=== PATIENT | female | born 1970 | race Caucasian/White ===

== ENCOUNTER → 2016-05-30 | Outpatient (CLI) | payer OTHER | END | disposition home or self-care (01) | LOC: LABWHC1 17:15 | PROVIDERS: ATTEND Internal Medicine Endocrinology, Diabetes & Metabolism | DX: C73 Malignant neoplasm of thyroid gland (principal); E55.9 Vitamin D deficiency, unspecified; E89.0 Postprocedural hypothyroidism | CPT/HCPCS: 36415; 82306; 84432; 84439; 84443; 84481; 86800 ==

== ENCOUNTER → 2016-08-29 | Outpatient (CLI) | payer OTHER ==
[2016-08-29 17:48] LABS: Calcium 9.5 mg/dL (8.4-10.2)
== END | disposition home or self-care (01) ==
LOC: LABWHC1 17:05
PROVIDERS: ATTEND Internal Medicine Endocrinology, Diabetes & Metabolism
DX: C73 Malignant neoplasm of thyroid gland (principal); E55.9 Vitamin D deficiency, unspecified; E89.0 Postprocedural hypothyroidism
CPT/HCPCS: 36415; 82306; 82310; 84439; 84443; 84481

== ENCOUNTER → 2017-07-01 | Outpatient (CLI) | payer OTHER ==
[2017-07-01 15:18] VITALS: BP 104/76; PULSE 96; TEMP 97.9; BMI 27.9
--- NOTE | 2017-07-01 15:59 | P.HPOB ---
History of Present Illness H&P Date: 07/01/17 Chief Complaint: The patient is here for her routine gynecologic exam and mammogram. This is a 46-year-old G3 PIII with an LMP of 06/12/2017. The patient is status post tubal ligation. She states her menstrual periods seem to come slightly earlier each month. She has infrequently noticed a slight pain right when her menstrual flow starts. She has not noticed this recently. She is otherwise without gynecologic complaints. Review of Systems She has gained about 14 pounds over the last 2 years. She has been having a difficult time losing weight. She denies respiratory, cardiac, or G.I. problems. Past Medical History Past Medical History: Cancer (Thyroid cancer), Thyroid Disorder (History of thyroid cancer status post thyroidectomy. 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 She had 3 vaginal deliveries and did have a tubal ligation. History of Any Multi-Drug Resistant Organisms: None Reported Past Surgical History: Tubal Ligation Additional Past Surgical History / Comment(s): Right and Left foot -1987,2011. 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 - Past Family History Sister(s) Family Medical History: Thyroid Disorder Mother Family Medical History: Renal Disease Medications and Allergies Home Medications Medication Instructions Recorded Confirmed Type Ergocalciferol [Vitamin D2 1 tab PO WEEKLY 07/01/17 07/01/17 History (DRISDOL)] Levothyroxine Sodium [Synthroid] 12 mcg PO DAILY 07/01/17 07/01/17 History Liothyronine Sodium [Cytomel] 2 tab PO BID 07/01/17 07/01/17 History Allergies Allergy/AdvReac Type Severity Reaction Status Date / Time No Known Allergies Allergy Unverified 07/01/17 15:22 Exam - Vital Signs Vital signs: Vital Signs Temp Pulse BP 07/01/17 15:16 97.9 F 96 104/76 Intake and Output 07/01/17 07/01/17 07/01/17 06:59 14:59 22:59 Other: Weight 73.936 kg Height 5'4", BMI 28.0. This is a well-developed well-nourished white female who is alert and oriented times 3 in no acute distress. HEENT: Within normal limits. NECK: Supple without mass or thyromegaly. CHEST AND LUNGS: Clear to auscultation. HEART: Regular rate and rhythm. BREASTS: Are without mass or discharge. AXILLARY EXAM: Negative for adenopathy. BACK: Negative for CVA tenderness. ABDOMEN: Soft, nontender, without palpable masses. PELVIC EXAM: Normal external genitalia. Cervix and vagina appear normal. The cervix is multiparous. There is no unusual discharge. There is no evidence of prolapse. The uterus is retroverted, nongravid size and nontender. There are no palpable adnexal masses or tenderness. RECTAL EXAM: negative for mass or tenderness and is negative for occult blood. EXTREMITIES: Nontender. IMPRESSION: 1. 46-year-old female with normal gynecologic exam. Probable perimenopausal state. PLAN: 1. Pap smear was performed. 2. Self Breast examination was discussed. 3. Screening mammogram will be done today. 4. The patient will keep a menstrual calendar and will make an appointment if she is having greater menstrual irregularity. 5. Weight control was discussed. We have discussed the importance of good nutrition and regular exercise. 6. Osteoporosis prevention was discussed. 7. She will return in one year and PRN.
--- NOTE | 2017-07-03 08:26 | MM ---
Reason for exam: screening (asymptomatic). Last mammogram was performed 2 years and 5 months ago. History: Patient has history of other cancer at age 35. Physical Findings: A clinical breast exam by your physician is recommended on an annual basis and results should be correlated with mammographic findings. MG 3D Screening Mammo W/Cad Bilateral CC and MLO view(s) were taken. Prior study comparison: January 25, 2015, bilateral MG screening mammo w CAD. December 22, 2013, left breast MG diagnostic mammo LT w CAD. The breast tissue is heterogeneously dense. This may lower the sensitivity of mammography. There is chronic nodularity in the right breast. No significant changes when compared with prior studies. ASSESSMENT: Benign, BI-RAD 2 RECOMMENDATION: Routine screening mammogram of both breasts in 1 year.
== END | disposition home or self-care (01) ==
LOC: WWCWWP 14:40
PROVIDERS: ATTEND Obstetrics & Gynecology
DX: Z12.31 Encounter for screening mammogram for malignant neoplasm of breast (principal)
CPT/HCPCS: 77063; 77067

== ENCOUNTER → 2017-12-06 | Outpatient (CLI) | payer OTHER ==
[2017-12-06 12:51] LABS: T4, Free (Free Thyroxine) 0.99 ng/dL (0.78-2.19)
== END | disposition home or self-care (01) ==
LOC: LABWHC1 11:56
PROVIDERS: ATTEND Internal Medicine Endocrinology, Diabetes & Metabolism
DX: C73 Malignant neoplasm of thyroid gland (principal)
CPT/HCPCS: 36415; 84439; 84443; 84481

== ENCOUNTER → 2018-05-23 | Outpatient (CLI) | payer OTHER ==
[2018-05-23 16:33] LABS: Calcium 9.3 mg/dL (8.7-10.3)
[2018-05-23 16:47] LABS: T4, Free (Free Thyroxine) 1.2 ng/dL (0.80-1.80)
== END ==
LOC: LABWHC1 11:45
PROVIDERS: ATTEND Internal Medicine Endocrinology, Diabetes & Metabolism
DX: E55.9 Vitamin D deficiency, unspecified (principal); E89.0 Postprocedural hypothyroidism
CPT/HCPCS: 36415; 82306; 82310; 84439; 84443; 84481

== ENCOUNTER → 2018-10-20 | Outpatient (CLI) | payer OTHER | END | disposition home or self-care (01) | LOC: LABWHC1 11:47 | PROVIDERS: ATTEND Internal Medicine Endocrinology, Diabetes & Metabolism | DX: C73 Malignant neoplasm of thyroid gland (principal) | CPT/HCPCS: 36415; 84432; 84439; 84443; 86800 ==

== ENCOUNTER → 2018-10-20 | Outpatient (CLI) | payer OTHER ==
[2018-10-20 10:55] VITALS: BP 105/68; PULSE 74; RESP 16; TEMP 98.2; BMI 25.7
--- NOTE | 2018-10-20 11:40 | P.HPOB ---
History of Present Illness H&P Date: 10/20/18 Chief Complaint: The patient is here for her routine gynecologic exam and ma mmogram. This is a 48-year-old G3 PIII with an LMP of 09/30/2018. Patient states her menstrual periods have been monthly but can fluctuate by up to one week. She has also noticed the 1st one or 2 days can be heavier and crampy. She has to change your protection up to every 2 hours on the heavier days. She has had some improvement with the cramping with [id number] ibuprofen. She is status post tubal ligation. She is otherwise without gynecologic complaints. Review of Systems The patient has lost 13 pounds over the last year and this was after her thyroid medication was adjusted.. She denies respiratory, cardiac, or G.I. problems. Past Medical History Past Medical History: Cancer, Thyroid Disorder Additional Past Medical History / Comment(s): Thyroid cancer status post thyroidectomy. She has been hypothyroid since her thyroidectomy. 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 She had 3 vaginal deliveries and did have a tubal ligation. History of Any Multi-Drug Resistant Organisms: None Reported Past Surgical History: Tubal Ligation Additional Past Surgical History / Comment(s): Right and Left foot -1987,2011. 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 - Past Family History Sister(s) Family Medical History: Thyroid Disorder Mother Family Medical History: Renal Disease Medications and Allergies Home Medications Medication Instructions Recorded Confirmed Type Ergocalciferol [Vitamin D2 1 tab PO WEEKLY 07/01/17 10/20/18 History (DRISDOL)] Levothyroxine Sodium [Synthroid] 12 mcg PO DAILY 07/01/17 10/20/18 History Liothyronine Sodium [Cytomel] 2 tab PO BID 07/01/17 10/20/18 History Allergies Allergy/AdvReac Type Severity Reaction Status Date / Time codeine AdvReac Vomiting Unverified 10/20/18 10:55 Exam Vital Signs Temp Pulse Resp BP Pulse Ox 10/20/18 10:51 98.2 F 74 16 105/68 98 Intake and Output 10/19/18 10/20/18 10/20/18 22:59 06:59 14:59 Other: Weight 68.039 kg Height 5'4", weight 150 pounds, BMI 26. This is a well-developed well-nourished white female who is alert and oriented times 3 in no acute distress. HEENT: Within normal limits. NECK: Supple without mass or thyromegaly. CHEST AND LUNGS: Clear to auscultation. HEART: Regular rate and rhythm. BREASTS: Are without mass or discharge. AXILLARY EXAM: Negative for adenopathy. BACK: Negative for CVA tenderness. ABDOMEN: Soft, nontender, without palpable masses. PELVIC EXAM: Normal external genitalia. Cervix and vagina appear normal. There is no unusual discharge. There is no evidence of prolapse. The uterus is anteverted, nongravid size and nontender. There are no palpable adnexal masses or tenderness. RECTAL EXAM: rectovaginal exam is negative for mass or tenderness and is negative for occult blood. EXTREMITIES: Nontender. IMPRESSION: 1. 48-year-old premenopausal female with normal gynecologic exam. She is status post tubal ligation 2. Mild hypermenorrhea and dysmenorrhea. PLAN: 1. Pap smear was deferred since she had a normal one on 07/01/2017. 2. Self breast awareness was discussed with the patient. 3. Screening mammogram will be done today. 4. I have recommended screening colonoscopy based on her age. She will see Dr. Ring to see if it can be arranged through her office. 5. Trial of meclofenamate sodium 100 mg PO TID PRN for heavy menstrual flow up to 6 days per cycle. The electronic prescription will be sent to [facility] pharmacy. She will continue to keep a menstrual calendar. She will call if she is having greater menstrual problems. 6.Osteoporosis prevention was discussed. I have stressed the importance of adequate calcium, vitamin D and regular exercise. Recommended amounts of calcium and vitamin D were also discussed. 7. She was advised to return in one year for her annual well woman exam and PRN.
--- NOTE | 2018-10-22 11:35 | MM ---
Reason for exam: screening (asymptomatic). Last mammogram was performed 1 year and 4 months ago. History: Patient has history of other cancer at age 35. Physical Findings: A clinical breast exam by your physician is recommended on an annual basis and results should be correlated with mammographic findings. MG 3D Screening Mammo W/Cad Bilateral CC and MLO view(s) were taken. Prior study comparison: July 01, 2017, bilateral MG 3d screening mammo w/cad. January 25, 2015, bilateral MG screening mammo w CAD. The breast tissue is extremely dense which could obscure a lesion on mammography. There is chronic nodularity in the right breast. No significant changes when compared with prior studies. ASSESSMENT: Benign, BI-RAD 2 RECOMMENDATION: Routine screening mammogram of both breasts in 1 year.
== END ==
LOC: WWCWWP 10:14
PROVIDERS: ATTEND Obstetrics & Gynecology
DX: Z12.31 Encounter for screening mammogram for malignant neoplasm of breast (principal)
CPT/HCPCS: 77063; 77067

== ENCOUNTER → 2019-03-12 | Outpatient (CLI) | payer OTHER | END | disposition home or self-care (01) | LOC: LABWHC1 11:52 | PROVIDERS: ATTEND Internal Medicine | DX: E89.0 Postprocedural hypothyroidism (principal) | CPT/HCPCS: 36415; 84439; 84443 ==

== ENCOUNTER → 2020-02-14 | Outpatient (CLI) | payer OTHER ==
[2020-02-14 23:52] LABS: T4, Free (Free Thyroxine) 0.8 ng/dL (0.80-1.80)
== END | disposition home or self-care (01) ==
LOC: LABWHC1 13:26
PROVIDERS: ATTEND Internal Medicine
DX: E89.0 Postprocedural hypothyroidism (principal)
CPT/HCPCS: 36415; 84439; 84443

== ENCOUNTER → 2020-03-14 | Outpatient (CLI) | payer OTHER ==
[2020-03-14 12:52] VITALS: BP 113/74; PULSE 83; RESP 18; TEMP 97.6
--- NOTE | 2020-03-14 13:49 | P.HPOB ---
History of Present Illness H&P Date: 03/14/20 Chief Complaint: The patient is here for her routine gynecologic exam and ma mmogram. This is a 49-year-old with an LMP of December 2019. The patient states her periods have become less predictable. Her LMP in December was heavy, but she has not had periods since then. She has had a history of heavy menstrual periods and I had prescribed meclofenamate sodium, however her insurance did not cover it so she did not take it. She states she has rare hot flashes. She is otherwise without gynecologic complaints. Review of Systems The patient has gained 6 pounds over the last year. She denies respiratory, cardiac, or G.I. problems. Past Medical History Past Medical History: Cancer, Thyroid Disorder Additional Past Medical History / Comment(s): Thyroid cancer status post thyroidectomy. She has been hypothyroid since her thyroidectomy. 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 She had 3 vaginal deliveries and did have a tubal ligation. History of Any Multi-Drug Resistant Organisms: None Reported Past Surgical History: Tubal Ligation Additional Past Surgical History / Comment(s): Right and Left foot -1987,2011. 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 - Past Family History Sister(s) Family Medical History: Thyroid Disorder Mother Family Medical History: Renal Disease Medications and Allergies Home Medications Medication Instructions Recorded Confirmed Type Ergocalciferol [Vitamin D2 1 tab PO WEEKLY 07/01/17 03/14/20 History (DRISDOL)] Levothyroxine Sodium [Synthroid] 88 mcg PO DAILY 07/01/17 03/14/20 History Liothyronine Sodium [Cytomel] 2 tab PO BID 07/01/17 03/14/20 History Calcium Carbonate/Vitamin D3 1 each PO DAILY 03/14/20 03/14/20 History [Calcium 250-D Tablet] Allergies Allergy/AdvReac Type Severity Reaction Status Date / Time codeine AdvReac Vomiting Unverified 03/14/20 12:46 Exam Vital Signs Temp Pulse Resp BP Pulse Ox 12/29/20 12:48 97.6 F 83 18 113/74 97 Intake and Output 03/13/20 03/14/20 03/14/20 22:59 06:59 14:59 Other: Weight 70.76 kg Height 5 feet 5 inches, weight 156 pounds, BMI 26.0. This is a well-developed well-nourished white female who is alert and oriented times 3 in no acute distress. HEENT: Within normal limits. NECK: Supple without mass or thyromegaly. CHEST AND LUNGS: Clear to auscultation. HEART: Regular rate and rhythm. BREASTS: Are without mass or discharge. AXILLARY EXAM: Negative for adenopathy. BACK: Negative for CVA tenderness. ABDOMEN: Soft, nontender, without palpable masses. PELVIC EXAM: Normal external genitalia. Cervix and vagina appear normal. The cervix is anterior .There is no unusual discharge. There is no evidence of prolapse. The uterus is retroverted, nongravid size and nontender. There are no palpable adnexal masses or tenderness. RECTAL EXAM: Rectovaginal exam is negative for mass or tenderness and is negative for occult blood. EXTREMITIES: Nontender. IMPRESSION: 1. 49-year-old perimenopausal female with recent oligomenorrhea and minimal vasomotor symptoms with normal gynecologic exam. 2. History of mild hypermenorrhea and dysmenorrhea. PLAN: 1. Pap smear cotest was performed. 2. Self breast awareness was discussed with the patient. 3. Screening mammogram will be done today. 4. Osteoporosis prevention was discussed. I have stressed the importance of adequate calcium, vitamin D and regular exercise. Recommended amounts of calcium and vitamin D were also discussed. 5. She will keep a menstrual calendar and call if menstrual problems. 6. She was advised to return in one year for her annual well woman exam and as needed.
--- NOTE | 2020-03-20 10:45 | MM ---
Reason for exam: screening (asymptomatic). Last mammogram was performed 1 year and 5 months ago. History: Patient has history of other cancer at age 35. Took hormonal contraceptives for 10 years. Physical Findings: A clinical breast exam by your physician is recommended on an annual basis and results should be correlated with mammographic findings. MG 3D Screening Mammo W/Cad Bilateral CC and MLO view(s) were taken. Prior study comparison: October 20, 2018, bilateral MG 3d screening mammo w/cad. July 01, 2017, bilateral MG 3d screening mammo w/cad. The breast tissue is heterogeneously dense. This may lower the sensitivity of mammography. There is chronic nodularity in the right breast. No significant changes when compared with prior studies. ASSESSMENT: Negative, BI-RAD 1 RECOMMENDATION: Routine screening mammogram of both breasts in 1 year.
--- NOTE | 2020-03-22 12:57 | P.PN ---
Progress Note - Text Progress Note Date: 03/22/20 OUTPATIENT FOLLOW-UP NOTE TEST(S)/RESULTS: test results from 1229 include negative Pap smear and negative HRHPV test, and benign mammogram. METHOD OF NOTIFICATION: a message with these results was left on the patient's voice mail. PATIENT COMMENTS: DIAGNOSIS: negative Pap smear cotest and benign mammogram. DISCUSSION: PLAN: the patient is to return in one year for her annual well woman exam. pap smear cotest will be repeated in 4-5 years.
== END | disposition home or self-care (01) ==
LOC: WWCWWP 12:34
PROVIDERS: ATTEND Obstetrics & Gynecology
DX: Z12.31 Encounter for screening mammogram for malignant neoplasm of breast (principal)
CPT/HCPCS: 77063; 77067

== ENCOUNTER → 2021-03-14 | Outpatient (CLI) | payer OTHER ==
[2021-03-14 19:31] LABS: T4, Free (Free Thyroxine) 0.88 ng/dL (0.800-1.800)
== END | disposition home or self-care (01) ==
LOC: LABWHC1 14:23
PROVIDERS: ATTEND Internal Medicine
DX: C73 Malignant neoplasm of thyroid gland (principal); E89.0 Postprocedural hypothyroidism; E55.9 Vitamin D deficiency, unspecified
CPT/HCPCS: 36415; 82306; 84432; 84439; 84443; 86800

== ENCOUNTER 2021-12-31 07:24 | Day surgery (SDC) | payer OTHER ==
[2021-12-28 13:04] VITALS: BMI 25.7
--- NOTE | 2021-12-31 07:04 | P.GSHP ---
History of Present Illness H&P Date: 12/31/21 CHIEF COMPLAINT: Colon screen HISTORY OF PRESENT ILLNESS: The patient is a 51-year-old female who presents for colon screen. Lower endoscopy was offered for further evaluation and management. PAST MEDICAL HISTORY: Please see list. PAST SURGICAL HISTORY: Please see list. MEDICATIONS: Please see list. ALLERGIES: Please see list. SOCIAL HISTORY: No illicit drug use FAMILY HISTORY: No reports of Crohn disease or ulcerative colitis. REVIEW OF ORGAN SYSTEMS: CONSTITUTIONAL: No reports of fevers or chills. PHYSICAL EXAM: VITAL SIGNS: Stable GENERAL: Well-developed pleasant in no acute distress. HEENT: No scleral icterus. Extraocular movements grossly intact. Moist buccal mucosa. NECK: Supple without lymphadenopathy. CHEST: Unlabored respirations. Equal bilateral excursions. CARDIOVASCULAR: Regular rate and rhythm. Distal 2+ pulses. ABDOMEN: Soft, nontender, nondistended. MUSCULOSKELETAL: No clubbing, cyanosis, or edema. ASSESSMENT: 1. Colon screen. PLAN: 1. Recommend proceeding with a lower endoscopy Past Medical History Past Medical History: Cancer, Thyroid Disorder Additional Past Medical History / Comment(s): Thyroid cancer status post thyroidectomy. History of Any Multi-Drug Resistant Organisms: None Reported Past Surgical History: Tubal Ligation Additional Past Surgical History / Comment(s): Right and Left foot -1987,2011. thyroidectomy-2006 Past Anesthesia/Blood Transfusion Reactions: No Reported Reaction Past Psychological History: No Psychological Hx Reported Smoking Status: Current every day smoker Past Alcohol Use History: Occasional Past Drug Use History: None Reported - Past Family History Sister(s) Family Medical History: Thyroid Disorder Mother Family Medical History: Renal Disease Medications and Allergies Home Medications Medication Instructions Recorded Confirmed Type Levothyroxine Sodium [Synthroid] 88 mcg PO DAILY 07/01/17 12/28/21 History Liothyronine Sodium [Cytomel] 2 tab PO BID 07/01/17 12/28/21 History Allergies Allergy/AdvReac Type Severity Reaction Status Date / Time codeine AdvReac Vomiting Unverified 12/28/21 12:55
[~2021-12-31 07:24] MED LIST: LACTATED RINGERS 1,000 ML IV SCH; LIDOCAINE 1% (10MG/ML) FOR IV START INTRADERMA PRN
[2021-12-31 07:56] VITALS: TEMP 97.1
[2021-12-31] MEDS ORDERED: MIDAZOLAM 2 MG/2 ML VIAL ONE (08:21)
[2021-12-31] MEDS ORDERED: PROPOFOL 10 MG/ML 20 ML VIAL IV ONE (08:21)
[2021-12-31] MEDS ORDERED: fentaNYL (PF) 50 MCG/ML 2 ML AMP ONE (08:21)
--- NOTE | 2021-12-31 08:58 | P.PCN ---
Date of Procedure: 12/31/21 Description of Procedure: PREOPERATIVE DIAGNOSIS: Abnormal stool test, cologuard POSTOPERATIVE DIAGNOSIS: Tubular adenoma sigmoid colon Tubular adenoma descending colon Internal hemorrhoids, grade 2 OPERATION: Colonoscopy to the ileocecal valve and appendiceal orifice, cecum Colonoscopy with cold forceps biopsy SURGEON: Heather Sharp MD. ANESTHESIA: MAC. INDICATIONS: The patient is an 51-year-old female who presents abnormal stool test. He Benefits and risks were described and informed consent was obtained. DESCRIPTION OF PROCEDURE: The patient had undergone Sutab prep. The patient had been brought into the operating room and laid in the left lateral decubitus position. After adequate intravenous sedation, the rectum was examined with 2% lidocaine jelly. No external hemorrhoids were encountered. The rectal tone was within normal limits. No lesions were palpated in the rectal vault. An Olympus colonoscope was advanced until the cecum, ileocecal valve and appendiceal orifice were clearly viewed. The prep was good. No sigmoid diverticulosis was encountered. Colonic polyps were found and removed. No evidence of focal colitis was found. Retroflexion of the scope demonstrated grade 2 internal hemorrhoids without active bleeding or inflammation. The colon was desufflated. The patient had tolerated the procedure well. Withdrawal time was over 6 minutes. FINDINGS: Aronchick preparation quality scale 2 (1-5) Internal hemorrhoids, grade 2 No external hemorrhoids No arteriovenous malformations. No sigmoid diverticulosis Removal of 6 polyps: - Cold forceps biopsy at 30 cm from the anal verge 2, 4 - 6 mm polyp, descending colon - Cold forceps biopsy at 20 cm from the anal verge 2, 3 - 5 mm polyp, sigmoid colon - Cold forceps biopsy at 15 cm from the anal verge 2, 3 - 5 mm polyp, sigmoid colon No focal colitis. RECOMMENDATIONS: Repeat colonoscopy in 3 years, 2024 Plan - Discharge Summary Discharge Rx Participant: No New Discharge Prescriptions: Continue Levothyroxine Sodium [Synthroid] 88 mcg PO DAILY Liothyronine Sodium [Cytomel] 2 tab PO BID Discharge Medication List Levothyroxine Sodium [Synthroid] 88 mcg PO DAILY 07/01/17 [History] Liothyronine Sodium [Cytomel] 2 tab PO BID 07/01/17 [History] Follow up Appointment(s)/Referral(s): Heather Sharp MD [STAFF PHYSICIAN] - As Needed Patient Instructions/Handouts: Colorectal Polyps (GEN) Activity/Diet/Wound Care/Special Instructions: Repeat colonoscopy 3 years, 2024 Discharge Disposition: HOME SELF-CARE
[2021-12-31 09:16] VITALS: BP 142/87; PULSE 50; RESP 17
== END 2021-12-31 09:45 | disposition home or self-care (01) ==
LOC: ORWHC2ENDO 07:24
PROVIDERS: ATTEND Surgery Plastic and Reconstructive Surgery
DX: Z12.11 Encounter for screening for malignant neoplasm of colon (principal); D12.4 Benign neoplasm of descending colon; D12.5 Benign neoplasm of sigmoid colon; K64.1 Second degree hemorrhoids; F17.200 Nicotine dependence, unspecified, uncomplicated; Z88.5 Allergy status to narcotic agent; E07.9 Disorder of thyroid, unspecified; Z79.890 Hormone replacement therapy; E89.0 Postprocedural hypothyroidism; Z83.49 Family history of other endocrine, nutritional and metabolic diseases; Z85.850 Personal history of malignant neoplasm of thyroid
CPT/HCPCS: 81025; 88305; 45380; J2250; J3010; J2704

== ENCOUNTER → 2022-02-06 | Outpatient (CLI) | payer OTHER | END | disposition home or self-care (01) | LOC: LABWHC1 12:39 | PROVIDERS: ATTEND Internal Medicine | DX: C73 Malignant neoplasm of thyroid gland (principal); E89.0 Postprocedural hypothyroidism; E55.9 Vitamin D deficiency, unspecified | CPT/HCPCS: 36415; 82306; 84432; 84439; 84443; 86800 ==

== ENCOUNTER → 2022-08-28 | Outpatient (CLI) | payer OTHER ==
[2022-08-28 20:52] LABS: T4, Free (Free Thyroxine) 0.96 ng/dL (0.80-1.80)
== END | disposition home or self-care (01) ==
LOC: LABWHC1 15:31
PROVIDERS: ATTEND Internal Medicine
DX: E89.0 Postprocedural hypothyroidism (principal)
CPT/HCPCS: 36415; 84439; 84443

== ENCOUNTER → 2023-01-28 | Outpatient (CLI) | payer OTHER ==
[2023-01-28 22:17] LABS: T4, Free (Free Thyroxine) 0.66 ng/dL (0.80-1.80)
== END | disposition home or self-care (01) ==
LOC: LABWHC1 13:56
PROVIDERS: ATTEND Internal Medicine
DX: C73 Malignant neoplasm of thyroid gland (principal); E55.9 Vitamin D deficiency, unspecified; E89.0 Postprocedural hypothyroidism
CPT/HCPCS: 36415; 82306; 84432; 84439; 84443; 86800

== ENCOUNTER → 2023-01-28 | Outpatient (CLI) | payer OTHER ==
[2023-01-28 13:11] VITALS: BP 114/73; PULSE 74; RESP 17; TEMP 98
--- NOTE | 2023-01-28 13:44 | P.HPOB ---
History of Present Illness H&P Date: 01/28/23 Chief Complaint: The patient is here for her routine gynecologic exam and ma mmogram. This is a 52-year-old with an LMP of February 2022. The patient has had some hot flashes during the past year but seemed to improve after her thyroid medication was adjusted. She seems to have had more UTIs during the past year which was unusual for her. She wonders if this could be related to the menopausal change. She is otherwise without complaints. Review of Systems She is getting about 7 pounds over the past 3 years. She denies respiratory, cardiac, or GI problems. Past Medical History Past Medical History: Cancer, Thyroid Disorder Additional Past Medical History / Comment(s): Thyroid cancer status post thyroidectomy. Hypothyroid. 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 History of Any Multi-Drug Resistant Organisms: None Reported Past Surgical History: Tubal Ligation Additional Past Surgical History / Comment(s): Right and Left foot -1987,2011. thyroidectomy-2006. Colonoscopy 2021. Past Anesthesia/Blood Transfusion Reactions: No Reported Reaction Past Psychological History: No Psychological Hx Reported Smoking Status: Current every day smoker (Half a pack per day.) Past Alcohol Use History: Occasional (0-1 drink per month.) Past Drug Use History: None Reported Additional History: She has been since 1989 and is sexually active. 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 - Past Family History Sister(s) Family Medical History: Thyroid Disorder Mother Family Medical History: Renal Disease Medications and Allergies Home Medications Medication Instructions Recorded Confirmed Type Levothyroxine Sodium [Synthroid] 88 mcg PO DAILY 07/01/17 01/28/23 History Liothyronine Sodium [Cytomel] 2 tab PO BID 07/01/17 01/28/23 History Calcium Carbonate/Vitamin D3 1 tab PO DAILY 01/28/23 01/28/23 History [Calcium 250-D Tablet] Ergocalciferol [Vitamin D2 (1250 1 cap PO WEEKLY 01/28/23 01/28/23 History Mcg = 27163 Iu)] Allergies Allergy/AdvReac Type Severity Reaction Status Date / Time codeine AdvReac Vomiting Verified 01/28/23 12:42 Exam Vital Signs Temp Pulse Resp BP Pulse Ox 01/28/23 12:45 98 F 74 17 114/73 97 Intake and Output 01/27/23 01/28/23 01/28/23 22:59 06:59 14:59 Other: Weight 73.936 kg Height 5 feet 4 inches, weight 163 pounds, BMI 20.0. This is a well-developed well-nourished white female who is alert and oriented times 3 in no acute distress. HEENT: Within normal limits. NECK: Supple without mass or thyromegaly. CHEST AND LUNGS: Clear to auscultation. HEART: Regular rate and rhythm. BREASTS: Are without mass or discharge. AXILLARY EXAM: Negative for adenopathy. BACK: Negative for CVA tenderness. ABDOMEN: Soft, nontender, without palpable masses. PELVIC EXAM: Normal external genitalia with mild atrophy. Cervix and vagina appear normal with mild atrophy. There is no unusual discharge. There is no evidence of prolapse. The uterus is retroverted, nongravid size and nontender. There are no palpable adnexal masses or tenderness. RECTAL EXAM: Rectovaginal exam is negative for mass or tenderness and is negative for occult blood. EXTREMITIES: Nontender. IMPRESSION: 1. 52-year-old perimenopausal female with normal gynecologic exam. PLAN: 1. Pap smear was deferred since she had a negative Pap smear cotest on 03/14/2020. 2. Self breast awareness was discussed with the patient. We have also discussed symptoms associated with inflammatory breast cancer. 3. Screening mammogram will be done today. 4. We have discussed urinary tract infections. I recommended that she try to void immediately after sexual intercourse. She can also try to drink cranberry juice or use cranberry supplements to see if this decreases the urinary tract infections. If she continues to have frequent UTIs, we will consider some vaginal estrogen cream to see if this helps. 5. Osteoporosis prevention was discussed. I have stressed the importance of adequate calcium, vitamin D and regular exercise. Recommended amounts of calcium and vitamin D were also discussed. 6. She'll call if menstrual problems. She will also call if she has bleeding after 12 months of amenorrhea. 7. She was advised to return in one year for her annual well woman exam.
--- NOTE | 2023-01-29 20:10 | MM ---
Reason for Exam: Screening (asymptomatic). Last mammogram was performed 2 year(s) and 11 month(s) ago. Patient History: Menarche at age 11. First Full-Term at age 23. Perimenopausal. Other cancer, age 35. Patient used Hormonal Contraceptives for 10 years. Risk Values: Medina 5 year model risk: 1.3%. NCI Lifetime model risk: 9.3%. Prior Study Comparison: 07/01/2017 Bilateral Screening Mammogram, [facility]. 10/20/2018 Bilateral Screening Mammogram, [facility]. 03/14/2020 Bilateral Screening Mammogram, [facility]. Tissue Density: The breast tissue is heterogeneously dense. This may lower the sensitivity of mammography. Findings: Analyzed By CAD. Unchanged upper-outer quadrant intramammary lymph node on the right. Bilateral asymmetric densities also remain unchanged. There is no suspicious group of microcalcifications or new suspicious mass in either breast. Overall Assessment: Benign, BI-RAD 2 Management: Screening Mammogram of both breasts in 1 year. . Patient should continue monthly self-breast exams. A clinical breast exam by your physician is recommended on an annual basis. This exam should not preclude additional follow-up of suspicious palpable abnormalities. Note on Medina scores and lifetime risk: 1. A Medina score greater than 3% is considered moderate risk. If this is the case, consider specialist referral to assess eligibility for a risk reducing agent. 2. If overall lifetime risk for the development of breast cancer is 20% or higher, the patient may qualify for future screening with alternating mammogram and breast MRI. Electronically signed and approved by: Patito Gonzalez M.D. Radiologist
== END ==
LOC: WWCWWP 12:36
PROVIDERS: ATTEND Obstetrics & Gynecology
DX: Z12.31 Encounter for screening mammogram for malignant neoplasm of breast (principal); E89.0 Postprocedural hypothyroidism; F17.210 Nicotine dependence, cigarettes, uncomplicated; Z79.890 Hormone replacement therapy; Z85.850 Personal history of malignant neoplasm of thyroid; Z88.5 Allergy status to narcotic agent; Z78.0 Asymptomatic menopausal state
CPT/HCPCS: 77063; 77067

== ENCOUNTER → 2023-02-17 | Outpatient (CLI) | payer OTHER ==
--- NOTE | 2023-02-17 16:46 | CT ---
EXAMINATION TYPE: CT abdomen pelvis wo con CT DLP: 400.0 mGycm, Automated exposure control for dose reduction was used. DATE OF EXAM: 02/17/2023 4:18 PM COMPARISON: None CLINICAL INDICATION:Female, 52 years old with history of R10.84 GENERALIZED ABDOMINAL PAIN; Bilateral flank pain. Suspected renal stone. UTI. TECHNIQUE: Axial CT of the ;CT abdomen pelvis wo con;Sagittal and coronal reformats were created on a separate workstation. Contrast used: mL of , (none if empty) Oral contrast used: without Oral Contrast (none if empty) FINDINGS: LOWER CHEST: Mild emphysema changes. ABDOMEN LIVER: Unremarkable GALLBLADDER AND BILE DUCTS: Unremarkable. PANCREAS: Unremarkable. SPLEEN: Unremarkable. ADRENAL GLANDS: Right adrenal gland 29 mm pulmonary nodule most compatible with lipid rich adrenal ad enoma. Left adrenal glands unremarkable. KIDNEYS AND URETERS: Nonobstructing right 2 mm focus. No obstructive uropathy. PELVIS BLADDER: Small urachal remnant extending away from the bladder anteriorly towards the umbilicus. Mild haziness around the urinary bladder wall. REPRODUCTIVE: The uterus is retroverted. ABDOMEN & PELVIS STOMACH AND BOWEL: No evidence of bowel obstruction. Appendix is normal. Small amount of stool throug hout colon. PERITONEUM/RETROPERITONEUM: No evidence of pneumoperitoneum or free fluid. VASCULATURE: No evidence of aortic aneurysm. MUSCULOSKELETAL: No acute osseous abnormalities LYMPH NODES: No gross evidence for lymphadenopathy. SOFT TISSUE/ABDOMINAL WALL: Unremarkable IMPRESSION: 1. Mild urinary bladder inflammation changes correlate with urinalysis. There may also be a urachal remnant present. No additional evidence for acute abdominal process. 2. Nonobstructing right renal calculus. 3. Normal-appearing appendix. 4. Moderate stool burden throughout the colon.
== END | disposition home or self-care (01) ==
LOC: RADCTMAIN 15:58
PROVIDERS: ATTEND Family Medicine
DX: N20.0 Calculus of kidney (principal); K56.41 Fecal impaction; N39.0 Urinary tract infection, site not specified; R11.0 Nausea
CPT/HCPCS: 74176

== ENCOUNTER → 2023-08-22 | Outpatient (CLI) | payer OTHER ==
[2023-08-23 04:46] LABS: T4, Free (Free Thyroxine) 0.52 ng/dL (0.80-1.80)
== END | disposition home or self-care (01) ==
LOC: LABWHC1 15:34
PROVIDERS: ATTEND Internal Medicine
DX: E89.0 Postprocedural hypothyroidism (principal)
CPT/HCPCS: 36415; 84439; 84443

== ENCOUNTER → 2024-09-10 | Outpatient (CLI) | payer OTHER ==
[2024-09-10 19:37] LABS: T4, Free (Free Thyroxine) 0.45 ng/dL (0.80-1.80)
== END | disposition home or self-care (01) ==
LOC: LABWHC1 15:30
PROVIDERS: ATTEND Internal Medicine
DX: C73 Malignant neoplasm of thyroid gland (principal); E89.0 Postprocedural hypothyroidism
CPT/HCPCS: 36415; 84432; 84439; 84443; 86800